=== PATIENT | female | born 1980 | race Caucasian/White ===

== ENCOUNTER 2017-01-25 07:07 | Day surgery (SDC) | payer BC, OTHER ==
[~2017-01-25 07:07] MED LIST: Dexamethasone 4 MG/ML 5 ML MDV ONE; Ketorolac 30 MG/ML SDV ONE; Lactated Ringers 1,000 ML IV SCH; Lactated Ringers 1,000 ML ONE; Lidocaine 1% 4 ML ONE; Lidocaine 1%/Sod Bicarbonate in NS 8.4% 1 ML Syringe PRN; Midazolam 1 MG/ML 2 ML SDV ONE; Ondansetron 4 MG/2 ML SDV ONE; Propofol 200 MG/20 ML SDV ONE; Sodium Chloride 0.9% 10 ML Syringe FLUSH PRN; fentaNYL 100 MCG/2 ML SDV ONE
[2017-01-25] MEDS ORDERED: Bupivacaine 0.25%/EPINEPHrine 1:200,000 30 ML SDV ONE (07:09)
--- NOTE | 2017-01-25 07:34 | PCM.PREANE ---
Preanesthetic Assessment - Anesthesia/Transfusion/Family Hx Anesthesia History: Prior Anesthesia Reaction Type of Anesthesia Reaction: Other (see below) (very confused and agitated with previous anesthesia) Family History of Anesthesia Reaction: No - Review of Systems General: No Symptoms Pulmonary: No Symptoms Cardiovascular: No Symptoms Gastrointestinal: No Symptoms Neurological: No Symptoms Other: Reports: None - Physical Assessment NPO Status Date: 01/24/17 NPO Status Time: 21:30 Pulse: 80 O2 Sat by Pulse Oximetry: 96 Respiratory Rate: 16 Blood Pressure: 112/64 Temperature: 36.1 C Weight: 125 kg ASA Class: 2 Mental Status: Alert & Oriented x3 Airway Class: Mallampati = 1 Dentition: Reports: Normal Dentition Thyro-Mental Finger Breadths: 3 Mouth Opening Finger Breadths: 3 ROM/Head Extension: Full Lungs: Clear to Auscultation, Normal Respiratory Effort Cardiovascular: Regular Rate, Regular Rhythm - Allergies Allergies/Adverse Reactions: Allergies Allergy/AdvReac Type Severity Reaction Status Date / Time morphine Allergy Anaphylactic Verified 01/24/17 16:24 Shock - Acknowledgements Anesthesia Type Planned: General Anesthesia, MAC Pt an Appropriate Candidate for the Planned Anesthesia: Yes Alternatives and Risks of Anesthesia Discussed w Pt/Guardian: Yes Pt/Guardian Understands and Agrees with Anesthesia Plan: Yes PreAnesthesia Questionnaire HEENT History: Reports: Impaired Vision, Other (See Below) Other HEENT History: wears glasses, contacts Cardiovascular History: Reports: None Respiratory History: Reports: None 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: Reports: Polycystic Ovaries Musculoskeletal History: Reports: None Neurological History: Reports: None Psychiatric History: Reports: None Endocrine/Metabolic History: Reports: None Hematologic History: Reports: None Immunologic History: Reports: None Oncologic (Cancer) History: Reports: None Dermatologic History: Reports: None - Past Surgical History Cardiovascular Surgical History: Reports: None Respiratory Surgical History: Reports: None GI Surgical History: Reports: Appendectomy, Cholecystectomy Female Surgical History: Reports: Section Endocrine Surgical History: Reports: None Musculoskeletal Surgical History: Reports: None Oncologic Surgical History: Reports: None Dermatological Surgical History: Reports: None - SUBSTANCE USE Smoking Status *Q: Current Every Day Smoker Recreational Drug Use History: No - HOME MEDS Home Medications: Home Meds ASA/Calcium Carb/Mag/Al Hydrox [Natalie Plus 500 MG] 3 tab PO BID PRN 01/24/17 [ History] Terbinafine HCl [Terbinafine] 250 mg PO DAILY 01/24/17 [History] - CURRENT (IN HOUSE) MEDS Current Meds: Current Medications Lactated Ringer's (Ringers, Lactated) 1,000 mls @ 125 mls/hr IV ASDIRECTED DAWIT Stop: 01/25/17 23:00 Lidocaine/Sodium Bicarbonate (Buffered Lidocaine 1% In Ns 8.4%) 0.25 ml .XX ONETIME PRN PRN Reason: Prior to IV Start Stop: 01/25/17 18:00 Sodium Chloride (Saline Flush) 10 ml FLUSH ASDIRECTED PRN PRN Reason: Keep Vein Open Stop: 01/25/17 18:00 Discontinued Medications Bupivacaine HCl/Epinephrine Bitart (Marcaine 0.25%/Epinephrine 1:200,000) Confirm Administered Dose 30 ml .ROUTE .STK-MED ONE Stop: 01/25/17 07:10 Dexamethasone (Dexamethasone) Confirm Administered Dose 20 mg .ROUTE .STK-MED ONE Stop: 01/25/17 07:04 Fentanyl (Sublimaze) Confirm Administered Dose 100 mcg .ROUTE .STK-MED ONE Stop: 01/25/17 07:03 Lidocaine HCl (Xylocaine-Mpf 1%) Confirm Administered Dose 4 mls @ as directed .ROUTE .STK-MED ONE Stop: 01/25/17 07:03 Lactated Ringer's (Ringers, Lactated) Confirm Administered Dose 1,000 mls @ as directed .ROUTE .STK-MED ONE Stop: 01/25/17 07:03 Ketorolac Tromethamine (Toradol) Confirm Administered Dose 30 mg .ROUTE .STK- MED ONE Stop: 01/25/17 07:03 Midazolam HCl (Versed 1 Mg/Ml) Confirm Administered Dose 2 mg .ROUTE .STK-MED ONE Stop: 01/25/17 07:04 Ondansetron HCl (Zofran) Confirm Administered Dose 4 mg .ROUTE .STK-MED ONE Stop: 01/25/17 07:03 Propofol (Diprivan 20 Ml) Confirm Administered Dose 400 mg .ROUTE .STK-MED ONE Stop: 01/25/17 07:03
[2017-01-25] MEDS ORDERED: Famotidine 20 MG/2 ML SDV IVPUSH ONE (07:43)
[2017-01-25] MEDS ORDERED: Ketamine 500 mg/10 ML MDV ONE (10:20)
[2017-01-25] MEDS ORDERED: fentaNYL 100 MCG/2 ML SDV ONE (10:38)
[2017-01-25 10:49] VITALS: BP 116/68
[2017-01-25] MEDS ORDERED: Metoclopramide 10 MG/2 ML SDV ONE (10:58)
--- NOTE | 2017-01-31 09:13 | PCM.OPNOTE ---
- General Post-Op/Procedure Note Date of Surgery/Procedure: 01/31/17 Operative Procedure(s): LEEP Pre Op Diagnosis: HARLAN II Post-Op Diagnosis: Same Anesthesia Technique: MAC Secondary Surgeon: Bertha Alvarado Complications: None Condition: Good Free Text/Narrative:: LEEP PROCEDURE Indication: HARLAN II Time out verification process: I verified the patient's name and date of , that I was going to perform a LEEP procedure, and that I had the correct supplies and equipment. The patient verbally consented to proceed with the LEEP procedure After patient is appropriately counseled regarding cervical dysplasia and need for LEEP conization. All pros, cons, risks, and benefits including but not limited to bleeding, infection, injury, cervical stenosis, and cervical incompetence were fully discussed and patient is ready to proceed. After being brought to colposcopy suite she is placed in lithotomy position. Insulated speculum placed. Using the colposcope, application of vinegar and lugol's solution allow the abnormal area(s) to be highlighted. The vagina and cervix are prepped with betadine or other appropriate soap if allergy present. A paracervical block 1% lidocaine with [id number] epi is injected in a four quadrant block. Using a loop under 100 de luna continuous pulse and 30 de luna coag blend setting 1 the diseased tissue is excised. The two specimens are obtained and marked. Hemostasis is controlled with electro-cautery and Monsel' s solution. Pt tolerated the procedure well and is given the standard post LEEP instructions. She is scheduled for 2 week post procedure appointment.
== END 2017-01-25 11:28 | disposition home or self-care (01) ==
LOC: JD.SDS 07:07
PROVIDERS: ATTEND Obstetrics & Gynecology
DX: D06.0 Carcinoma in situ of endocervix (principal); Z88.8 Allergy status to other drugs, medicaments and biological substances; Z90.49 Acquired absence of other specified parts of digestive tract; Z98.890 Other specified postprocedural states; F17.210 Nicotine dependence, cigarettes, uncomplicated; Z79.899 Other long term (current) drug therapy
CPT/HCPCS: 57460; 81025; J1100; J1885; J2250; J2405; J2765; J3010; J7120; 00940; J2704

== ENCOUNTER 2020-10-26 07:51 | Day surgery (SDC) | payer OTHER ==
[~2020-10-26 07:51] MED LIST changes: -Dexamethasone 4 MG/ML 5 ML MDV ONE; -Ketorolac 30 MG/ML SDV ONE; -Lactated Ringers 1,000 ML ONE; -Lidocaine 1% 4 ML ONE; +Lidocaine 1%/Sod Bicarbonate in NS 8.4% 1 ML Syringe IDERM PRN; -Lidocaine 1%/Sod Bicarbonate in NS 8.4% 1 ML Syringe PRN; -Midazolam 1 MG/ML 2 ML SDV ONE; -Ondansetron 4 MG/2 ML SDV ONE; -Propofol 200 MG/20 ML SDV ONE; -fentaNYL 100 MCG/2 ML SDV ONE
--- NOTE | 2020-10-26 08:28 | PCM.PREANE ---
Preanesthetic Assessment - Procedure Proposed Procedure: EGD / Colonoscopy - Anesthesia/Transfusion/Family Hx Anesthesia History: Prior Anesthesia Reaction (bad dreams) Family History of Anesthesia Reaction: No Transfusion History: No Prior Transfusion(s) - Review of Systems General: No Symptoms Pulmonary: No Symptoms Cardiovascular: No Symptoms Gastrointestinal: Nausea Neurological: No Symptoms Other: Reports: Diabetes (check this am 139) - Physical Assessment NPO Status Date: 10/25/20 NPO Status Time: 00:00 Height: 1.63 m Weight: 113 kg ASA Class: 3 Mental Status: Alert & Oriented x3 Airway Class: Mallampati = 2 Dentition: Reports: Implants (front six on top and one on botom in back ) Thyro-Mental Finger Breadths: 3 Mouth Opening Finger Breadths: 2 ROM/Head Extension: Full Lungs: Clear to Auscultation, Normal Respiratory Effort Cardiovascular: Regular Rate, Regular Rhythm - Allergies Allergies/Adverse Reactions: Allergies Allergy/AdvReac Type Severity Reaction Status Date / Time ketorolac [From Toradol] Allergy Cannot Verified 10/25/20 12:37 Remember morphine Allergy Anaphylactic Verified 10/25/20 12:37 Shock - Blood Blood Available: No Product(s) Available: None - Anesthesia Plan Pre-Op Medication Ordered: None - Acknowledgements Anesthesia Type Planned: MAC Pt an Appropriate Candidate for the Planned Anesthesia: Yes Alternatives and Risks of Anesthesia Discussed w Pt/Guardian: Yes Pt/Guardian Understands and Agrees with Anesthesia Plan: Yes PreAnesthesia Questionnaire HEENT History: Reports: Impaired Vision, Other (See Below) Other HEENT History: wears glasses, contacts Cardiovascular History: Reports: High Cholesterol Respiratory History: Reports: None Gastrointestinal History: Reports: GERD, Other (See Below) Other Gastrointestinal History: anal pain 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, Other (See Below) Other OB/BYN History: HARLAN III, cervix cauterization Musculoskeletal History: Reports: None Neurological History: Reports: None Psychiatric History: Reports: None Endocrine/Metabolic History: Reports: Diabetes, Type II Hematologic History: Reports: None Immunologic History: Reports: None Oncologic (Cancer) History: Reports: None Dermatologic History: Reports: None - Past Surgical History Head Surgeries/Procedures: Reports: None Cardiovascular Surgical History: Reports: None Respiratory Surgical History: Reports: None GI Surgical History: Reports: Appendectomy, Cholecystectomy Female Surgical History: Reports: Section, Cervical Cryotherapy Male Surgical History: Reports: None Endocrine Surgical History: Reports: None Neurological Surgical History: Reports: None Musculoskeletal Surgical History: Reports: None Oncologic Surgical History: Reports: None Dermatological Surgical History: Reports: None - SUBSTANCE USE Tobacco Use Status *Q: Current Every Day Tobacco User Tobacco Use Within Last Twelve Months: Cigarettes Second Hand Smoke Exposure: No Days Per Week of Alcohol Use: 0 Number of Drinks Per Day: 0 Total Drinks Per Week: 0 Recreational Drug Use History: No - HOME MEDS Home Medications: Home Meds medroxyPROGESTERone Acetate [Depo-Provera] 1 dose IM ASDIRECTED 03/28/18 [History] Aspirin/Acetaminophen/Caffeine [Excedrin Migraine Caplet] 2 tab PO Q4H PRN 10/25/20 [History] Cyclobenzaprine [Flexeril] 5 mg PO TID PRN 10/25/20 [History] Empagliflozin [Jardiance] 10 mg PO DAILY 10/25/20 [History] Famotidine [Pepcid AC] 20 mg PO DAILY PRN 10/25/20 [History] Hydrocodone/Acetaminophen [Vicodin Hp 10-300 mg Tablet] 1 tab PO Q6H PRN 10/25/20 [History] Nicotine Polacrilex [Nicorette] 2 mg PO Q2H PRN 10/25/20 [History] Omeprazole Magnesium [Prilosec Otc] 20 mg PO DAILY 10/25/20 [History] SUMAtriptan succinate [Imitrex] 100 mg PO ASDIRECTED PRN 10/25/20 [History] Simvastatin [Zocor] 40 mg PO DAILY 10/25/20 [History] buPROPion [Wellbutrin SR] 150 mg PO DAILY 10/25/20 [History] metFORMIN [Glucophage] 500 mg PO BID 10/25/20 [History] - CURRENT (IN HOUSE) MEDS Current Meds: Current Medications Lactated Ringer's (Ringers, Lactated) 1,000 mls @ 125 mls/hr IV ASDIRECTED DAWIT Stop: 10/26/20 23:00 Lidocaine/Sodium Bicarbonate (Lidocaine 1%/Sod Bicarbonate In Ns 8.4% 1 Ml Syringe) 0.25 ml IDERM ONETIME PRN PRN Reason: Prior to IV Start Stop: 10/26/20 23:00 Sodium Chloride (Sodium Chloride 0.9% 10 Ml Syringe) 10 ml FLUSH ASDIRECTED PRN PRN Reason: Keep Vein Open Stop: 10/26/20 23:00
[2020-10-26] MEDS ORDERED: Lidocaine 1% 4 ML ONE (08:49)
[2020-10-26] MEDS ORDERED: Propofol 200 MG/20 ML SDV ONE ×3 (08:49→10:41)
[2020-10-26] MEDS ORDERED: fentaNYL 100 MCG/2 ML SDV ONE (08:50)
--- NOTE | 2020-10-26 11:00 | PCM48HPAN ---
Post Anesthesia Note - EVALUATION WITHIN 48HRS OF ANESTHETIC Vital Signs in Normal Range: Yes Patient Participated in Evaluation: Yes Respiratory Function Stable: Yes Airway Patent: Yes Cardiovascular Function Stable: Yes Hydration Status Stable: Yes Pain Control Satisfactory: Yes Nausea and Vomiting Control Satisfactory: Yes Mental Status Recovered: Yes Vital Signs: Last Vital Signs Temp 36.6 C 10/26/20 08:00 Pulse 92 10/26/20 08:00 Resp 20 10/26/20 08:00 BP 120/94 H 10/26/20 08:00 Pulse Ox 97 10/26/20 08:00
--- NOTE | 2020-10-26 11:03 | PCM.OPNOTE ---
- General Post-Op/Procedure Note Date of Surgery/Procedure: 10/26/20 Operative Procedure(s): EGD and colonoscopy Findings: 1. Bile reflux 2. Gastritis 3. Irregular Z-line 4. Descending colon polyp 5. Rectal polyps x4 Pre Op Diagnosis: Hematochezia, Reflux and heartburn Post-Op Diagnosis: same Anesthesia Technique: MAC Primary Surgeon: Lisa Peoples Anesthesia Provider: Isabela Arredondo Pathology: 1. Gastric antrum biopsies 2. Z-line biopsies 3. Descending colon polyp 4. Rectal polyps x4 Fluid Replacement, Intraop: 900 Output, Urine Amount: 0 EBL in mLs: 0 Complications: none apparent Condition: Good
--- NOTE | 2020-10-26 11:07 | PCM.PRNOTE ---
- Free Text/Narrative Note: Operative Report Date of Procedure: October 26, 2020 Pre Op Diagnosis: Reflux and heartburn, hematochezia Post-Op Diagnosis: same Operative Procedures: 1. EGD with biopsy 2. Colonoscopy to the cecum Primary Surgeon: Lisa Peoples MD Anesthesia Provider: Isabela Arredondo CRNA Anesthesia Technique: MAC IV Fluid Replacement, Intraop: []cc crystalloid Output, Urine Amount: []cc EBL in mLs: []cc Findings: 1. Bile reflux 2. Gastritis 3. Irregular Z-line 4. Descending colon polyp 5. Rectal polyps x4 Specimens: 1. Gastric antrum biopsies 2. Z-line biopsies 3. Descending colon polyp 4. Rectal polyps x4 Drain/Tubes: None Indication: The patient is an 40-year-old lady who presented to the clinic with he matochezia. The patient reported symptoms of reflux and heartburn in addition. The patient was consented for a diagnostic EGD and colonoscopy. Risks of bleeding, and perforation were discussed, and the patient agreed to the risks and wished to proceed. Description of the procedure: The patient was taken back to the endoscopy suite, and placed in the left lateral decubitus position. A bite block was placed. The patient was sedated with MAC anesthesia. The Olympus video endoscope was inserted into the oropharynx and guided under direct vision into the esophagus, stomach, and duodenum. The duodenal bulb and second portion of the duodenum were unremarkable. The gastric antrum was inspected and cold biopsy forceps were used to take tissue samples for H. pylori. There was erythema and adherent specks of blood consistent with gastritis. There was bilious fluid pooling in the distal stomach, and actively seen refluxing from the pylorus. The scope was withdrawn to the stomach and retroflexed. No erosions or ulcers were noted. The scope was withdrawn to the esophagus. The z-line appeared irregular, and was biopsied in four quadrants with a cold biopsy forceps. The endoscope was then withdrawn Next, anorectal examination was performed. No lesions, masses or hemorrhoids were noted externally or on palpation. The scope was placed into the rectum and advanced to cecum. Upon reaching the cecum, and the patients cecum was entered. There was minimal tortuosity of the colon. The ileocecal valve was well visualized and the appendiceal orifice identified. At this point, the scope was slowly withdrawn, paying attention to the mucosa. The patient had good bowel prep, 90-95% of the mucosa was visible. a 4mm colon polyp was noted in the descending colon and removed with a jumbo cold biopsy forceps. In the rectum, 3 flat polyps ranging 2-3mm and an additional semipedunculated 4mm polyp was seen and all removed with a jumbo cold biopsy forceps. The scope was retroflexed and some hemorrhoidal tissue was noted. The scope was placed back in the lumen and excess air was aspirated. The scope was removed. The patient tolerated the procedure very well. Complications: None apparent Condition: The patient was transported to PACU in stable condition. Lisa Peoples MD General Surgery
[2020-10-26 11:57] VITALS: BP 105/73; PULSE 63
== END 2020-10-26 11:40 | disposition home or self-care (01) ==
LOC: JD.SDS 07:51
PROVIDERS: ATTEND Surgery
DX: K63.5 Polyp of colon (principal); K62.1 Rectal polyp; K22.8 Other specified diseases of esophagus; K31.89 Other diseases of stomach and duodenum; I78.1 Nevus, non-neoplastic; K63.89 Other specified diseases of intestine; K64.9 Unspecified hemorrhoids; F17.210 Nicotine dependence, cigarettes, uncomplicated; E78.00 Pure hypercholesterolemia, unspecified; E11.9 Type 2 diabetes mellitus without complications; Z88.6 Allergy status to analgesic agent; Z79.82 Long term (current) use of aspirin; Z79.84 Long term (current) use of oral hypoglycemic drugs; Z79.899 Other long term (current) drug therapy; Z98.890 Other specified postprocedural states
CPT/HCPCS: 43239; 45380; J2704; J3010; J7120; 00813

== ENCOUNTER 2023-12-04 13:07 | Emergency (ER) | payer BC ==
[2023-12-04] MEDS: diphenhydrAMINE 50 MG/ML SDV IVPUSH ONE (14:10)
[2023-12-04] MEDS: Metoclopramide 10 MG/2 ML SDV IVPUSH ONE (14:13)
[2023-12-04 14:15] LABS: BASOPHILS ABSOLUTE AUTO 0.1 K/mm3 (0.0-0.2); BASOPHILS PERCENT AUTO 0.5 % (0.0-1.0); EOSINOPHILS ABSOLUTE AUTO 0.1 K/mm3 (0.0-0.4); EOSINOPHILS PERCENT AUTO 0.9 % (0.0-6.0); HEMATOCRIT 45.8 % (37.0-47.0); HEMOGLOBIN 15.6 gm/dl (12.0-16.0); IMMATURE GRAN ABSOLUTE AUTO 0.01 K/mm3 (0.00-0.05); IMMATURE GRAN PERCENT AUTO 0.1 % (0.0-0.4); LYMPHOCYTES ABSOLUTE AUTO 4.1 K/mm3 (1.0-4.8); MEAN CORPUSCULAR HGB CONC 34.1 g/dl (32.0-36.0); MEAN CORPUSCULAR VOLUME 93.9 fl (83.0-99.0); MEAN PLATELET VOLUME 10.5 fl (9.4-12.3); MONOCYTES ABSOLUTE AUTO 0.5 K/mm3 (0.0-0.8); NEUTROPHILS ABSOLUTE AUTO 4.8 K/mm3 (1.8-7.7); NEUTROPHILS PERCENT AUTO 50.5 % (41.0-71.0); PLATELET COUNT,PLT 235 K/mm3 (150-400); RED BLOOD CELL COUNT 4.88 M/mm3 (4.10-5.30); WHITE BLOOD CELL COUNT,WBC 9.54 K/mm3 (3.9-11.3)
[2023-12-04] MEDS: HYDROmorphone 0.5 MG/0.5 ML Syringe IVPUSH ONE (14:16)
[2023-12-04] MEDS: Sodium Chloride 0.9% 10 ML Syringe FLUSH PRN (14:20)
[2023-12-04 14:26] LABS: A/G RATIO 1.4 (1-2); ALANINE AMINOTRANSFERASE,ALT 29 U/L (14-59); ALBUMIN 4.2 g/dl (3.4-5.0); ALKALINE PHOSPHATASE 73 U/L (46-116); ANION GAP 13.6 (5-15); ASPARTATE AMNIOTRANSFERASE,AST 17 U/L (15-37); BILIRUBIN TOTAL 0.5 mg/dL (0.2-1.0); BLOOD UREA NITROGEN,BUN 9 mg/dL (7-18); CALCIUM 8.5 mg/dL (8.5-10.1); CARBON DIOXIDE,CO2 23 mEq/L (21-32); CHLORIDE,CL 105 mEq/L (98-107); CREATININE 0.9 mg/dL (0.55-1.02); ESTIMATED GFR 81 mL/min (>60); GLUCOSE RANDOM 139 mg/dL (70-99); MAGNESIUM 2.1 mg/dL (1.8-2.4); POTASSIUM,K 3.6 mEq/L (3.5-5.1); PROTEIN TOTAL,TP 7.3 g/dl (6.4-8.2); SODIUM,NA 138 mEq/L (136-145)
[2023-12-04 14:27] LABS: TROPONIN I HIGH SENSITIVITY < 4 pg/mL (<=51)
[2023-12-04 16:38] VITALS: BP 112/63; PULSE 82
== END 2023-12-04 15:30 | disposition home or self-care (01) ==
LOC: JD.ED 13:07
DX: G43.909 Migraine, unspecified, not intractable, without status migrainosus (principal); R07.89 Other chest pain; E78.00 Pure hypercholesterolemia, unspecified; K21.9 Gastro-esophageal reflux disease without esophagitis; E11.9 Type 2 diabetes mellitus without complications; Z88.5 Allergy status to narcotic agent; Z79.82 Long term (current) use of aspirin; Z79.899 Other long term (current) drug therapy; Z90.49 Acquired absence of other specified parts of digestive tract
CPT/HCPCS: 36415; 70450; 71045; 80053; 83735; 84484; 85025; 85379; 93005; 96374; 96375; 99285; J1170; J1200; J2765; J3490; 93010; 99284